=== PATIENT | male | born 2000 | race Hispanic/Latino ===

== ENCOUNTER 2022-06-19 19:22 | Emergency (ER) | payer OTHER ==
--- OUTSIDE RECORDS SUMMARY | 2022-06-19 19:25 | XMS REPORT | Continuity of Care Document ---
:2000 Author Organization [facility] t Address [address] [place] [address] [address] [place] [address] Care Team Providers Name Role Phone Unavailable Unavailable Unavailable Payers Payer Name Policy Type Policy Number Effective Date Expiration Date S ource Problems This patient has no known problems. Allergies, Adverse Reactions, Alerts Allergy Allergy Status Severity Reaction(s) Onset Inactive Treating Comm ents Source Name Type Date Date Clinician Unable DA Active U [facility] to 06-07 Assess 00:00: 00 Medications This patient has no known medications. Vital Signs Vital Name Observation Time Observation Value Comments Source Respiratory Rate 2020-06-09 09:21:42 16 /min Temperature 2020-06-09 09:21:42 36.7\S\98.1 Weight 2020-06-09 09:21:42 85051.932\S\2240 Weight Measurement Method 2020-06-09 09:21:42 Estimated by Patient 02 Sat by Pulse Oximetry 2020-06-09 09:21:42 99 /min Body Mass Index 2020-06-09 09:21:42 21.9 Height 2020-06-09 09:21:42 170.18\S\67 Pulse Rate 2020-06-09 09:21:42 76 /min 02 Sat by Pulse Oximetry 2020-06-07 22:01:05 99 /min Body Mass Index 2020-06-07 22:01:05 21.9 Height 2020-06-07 22:01:05 170.18\S\67 Pulse Rate 2020-06-07 22:01:05 76 /min Respiratory Rate 2020-06-07 22:01:05 16 /min Temperature 2020-06-07 22:01:05 36.7\S\98.1 Weight 2020-06-07 22:01:05 41140.932\S\2240 Weight Measurement Method 2020-06-07 22:01:05 Estimated by Patient 02 Sat by Pulse Oximetry 2020-06-07 21:42:10 99 /min Body Mass Index 2020-06-07 21:42:10 21.9 Height 2020-06-07 21:42:10 170.18\S\67 Pulse Rate 2020-06-07 21:42:10 76 /min Respiratory Rate 2020-06-07 21:42:10 16 /min Temperature 2020-06-07 21:42:10 36.7\S\98.1 Weight 2020-06-07 21:42:10 02547.932\S\2240 Weight Measurement Method 2020-06-07 21:42:10 Estimated by Patient 02 Sat by Pulse Oximetry 2020-06-07 17:26:05 99 /min Body Mass Index 2020-06-07 17:26:05 21.9 Height 2020-06-07 17:26:05 170.18\S\67 Pulse Rate 2020-06-07 17:26:05 76 /min Respiratory Rate 2020-06-07 17:26:05 16 /min Temperature 2020-06-07 17:26:05 36.7\S\98.1 Weight 2020-06-07 17:26:05 96585.932\S\2240 Weight Measurement Method 2020-06-07 17:26:05 Estimated by Patient 02 Sat by Pulse Oximetry 2020-06-07 17:11:09 99 /min Body Mass Index 2020-06-07 17:11:09 21.9 Height 2020-06-07 17:11:09 170.18\S\67 Pulse Rate 2020-06-07 17:11:09 76 /min Respiratory Rate 2020-06-07 17:11:09 16 /min Temperature 2020-06-07 17:11:09 36.7\S\98.1 Weight 2020-06-07 17:11:09 78785.932\S\2240 Weight Measurement Method 2020-06-07 17:11:09 Estimated by Patient 02 Sat by Pulse Oximetry 2020-06-07 16:36:47 99 /min Body Mass Index 2020-06-07 16:36:47 21.9 Height 2020-06-07 16:36:47 170.18\S\67 Pulse Rate 2020-06-07 16:36:47 76 /min Respiratory Rate 2020-06-07 16:36:47 16 /min Temperature 2020-06-07 16:36:47 36.7\S\98.1 Weight 2020-06-07 16:36:47 33432.932\S\2240 Weight Measurement Method 2020-06-07 16:36:47 Estimated by Patient 02 Sat by Pulse Oximetry 2020-06-07 15:17:21 99 /min Body Mass Index 2020-06-07 15:17:21 21.9 Height 2020-06-07 15:17:21 170.18\S\67 Pulse Rate 2020-06-07 15:17:21 76 /min Respiratory Rate 2020-06-07 15:17:21 16 /min Temperature 2020-06-07 15:17:21 36.7\S\98.1 Weight 2020-06-07 15:17:21 57093.932\S\2240 Weight Measurement Method 2020-06-07 15:17:21 Estimated by Patient 02 Sat by Pulse Oximetry 2020-06-07 14:06:00 99 /min Body Mass Index 2020-06-07 14:06:00 21.9 Height 2020-06-07 14:06:00 170.18\S\67 Pulse Rate 2020-06-07 14:06:00 76 /min Respiratory Rate 2020-06-07 14:06:00 16 /min Temperature 2020-06-07 14:06:00 36.7\S\98.1 Weight 2020-06-07 14:06:00 95826.932\S\2240 Weight Measurement Method 2020-06-07 14:06:00 Estimated by Patient 02 Sat by Pulse Oximetry 2020-06-07 14:03:57 99 /min Body Mass Index 2020-06-07 14:03:57 21.9 Height 2020-06-07 14:03:57 170.18\S\67 Pulse Rate 2020-06-07 14:03:57 76 /min Respiratory Rate 2020-06-07 14:03:57 16 /min Temperature 2020-06-07 14:03:57 36.7\S\98.1 Weight 2020-06-07 14:03:57 65842.932\S\2240 Weight Measurement Method 2020-06-07 14:03:57 Estimated by Patient 02 Sat by Pulse Oximetry 2020-06-07 13:43:56 99 /min Body Mass Index 2020-06-07 13:43:56 21.9 Height 2020-06-07 13:43:56 170.18\S\67 Pulse Rate 2020-06-07 13:43:56 76 /min Respiratory Rate 2020-06-07 13:43:56 16 /min Temperature 2020-06-07 13:43:56 36.7\S\98.1 Weight 2020-06-07 13:43:56 15532.932\S\2240 Weight Measurement Method 2020-06-07 13:43:56 Estimated by Patient 02 Sat by Pulse Oximetry 2020-06-07 13:43:25 99 /min Body Mass Index 2020-06-07 13:43:25 21.9 Height 2020-06-07 13:43:25 170.18\S\67 Pulse Rate 2020-06-07 13:43:25 76 /min Respiratory Rate 2020-06-07 13:43:25 16 /min Temperature 2020-06-07 13:43:25 36.7\S\98.1 Weight 2020-06-07 13:43:25 30643.932\S\2240 Weight Measurement Method 2020-06-07 13:43:25 Estimated by Patient WEIGHT 2020-06-07 13:38:00 63.422220 kg HEIGHT 2020-06-07 13:38:00 170.18 cm Procedures This patient has no known procedures. Encounters Start End Encounter Admission Attending Care Care Encounter Source Date/Time Date/Time Type Type Clinicians Facility Department ID 2020-06-07 Inpatient [facility] [id number] [facility] 13:18:00 23 Results This patient has no known results.
[2022-06-19] MEDS ORDERED: ETOMIDATE 20 MG/10 ML VIAL IV ONE (20:10)
--- NOTE | 2022-06-19 20:31 | RAD REPORT ---
EXAM DESCRIPTION: RAD - Shoulder Left 2 View - 06/19/2022 8:13 pm CLINICAL HISTORY: DEFORMITY COMPARISON: No comparisons FINDINGS: Subcoracoid anterior dislocation of the humeral head is noted. No fracture is apparent.
[2022-06-19] MEDS ORDERED: NA CHLORIDE 0.9% 250 ML ONE (21:15)
--- NOTE | 2022-06-19 21:19 | RAD REPORT ---
EXAM DESCRIPTION: RAD - Shoulder Left 2 View - 06/19/2022 9:14 pm CLINICAL HISTORY: Post Reduction COMPARISON: Shoulder Left 2 View dated 06/19/2022 FINDINGS: The previously noted dislocation has been reduced. No fracture seen.
[2022-06-19 22:51] VITALS: TEMP 98.4
[2022-06-19 22:57] VITALS: BP 124/56; O2SAT 99
--- NOTE | 2022-07-06 14:17 | EDPHYS ---
Physician Documentation [facility] Name: Dariusz Garcia Age: 21 yrs Sex: Male : 2000 Arrival Date: 06/19/2022 Time: 19:23 Bed 4 Private MD: ED Physician Arabella Ashraf HPI: 06/19 19:51 This 21 yrs old Male presents to ER via Unassigned with complaints of Fall sp3 Injury, Head Injury-Adult, Dislocated shoulder. 19:51 21-year-old male with no known past medical history presents with mechanical sp3 ground-level fall with injury to the left shoulder and right forehead just prior to arrival. There was no medical etiology for his fall including chest pain, syncope, seizure, or any other prodrome symptoms. Patient denies any drugs alcohol use. Last meal was approximately 3+ hours ago with only a "few bites of [place] food". Patient has not had prior sedation of any type. Patient states that he "feels like his left shoulder is dislocated". No other injuries reported and headache is not present and patient denies LOC, changes in vision, or any other neurological symptoms at this time.. Historical: - Allergies: 20:00 PENICILLINS; aa9 - Home Meds: 19:52 None [Active]; kr3 - PMHx: 19:52 None; kr3 - PSHx: 19:52 None; kr3 - Immunization history:: Client reports having NOT received the Covid vaccine. - Social history:: Smoking status: Patient denies any tobacco usage or history of. - Immunization history: Last tetanus immunization: unknown. ROS: 19:53 Constitutional: Negative for fever, chills, and weight loss, Eyes: Negative for injury, sp3 pain, redness, and discharge, ENT: Negative for injury, pain, and discharge, Neck: Negative for injury, pain, and swelling, Cardiovascular: Negative for chest pain, palpitations, and edema, Respiratory: Negative for shortness of breath, cough, wheezing, and pleuritic chest pain, Abdomen/GI: Negative for abdominal pain, nausea, vomiting, diarrhea, and constipation, Back: Negative for injury and pain, Skin: Negative for injury, rash, and discoloration, Neuro: Negative for headache, weakness, numbness, tingling, and seizure, Psych: Negative for depression, anxiety, suicide ideation, homicidal ideation, and hallucinations, Allergy/Immunology: Negative for hives, rash, and allergies. 19:53 All other systems are negative. Exam: 19:54 Constitutional: This is a well developed, well nourished patient who is awake, alert, sp3 and in no acute distress. Eyes: Pupils equal round and reactive to light, extra-ocular motions intact. Lids and lashes normal. Conjunctiva and sclera are non-icteric and not injected. Cornea within normal limits. Periorbital areas with no swelling, redness, or edema. ENT: Nares patent. No nasal discharge, no septal abnormalities noted. External auditory canals are clear. Oropharynx with no redness, swelling, or masses, exudates, or evidence of obstruction, uvula midline. Mucous membranes moist. Neck: Trachea midline, no thyromegaly or masses palpated, and no cervical lymphadenopathy. Supple, full range of motion without nuchal rigidity, or vertebral point tenderness. No Meningismus. Chest/axilla: Normal chest wall appearance and motion. Nontender with no deformity. No lesions are appreciated. Cardiovascular: Regular rate and rhythm with a normal S1 and S2. No gallops, murmurs, or rubs. Normal PMI, no JVD. No pulse deficits. Respiratory: Lungs have equal breath sounds bilaterally, clear to auscultation and percussion. No rales, rhonchi or wheezes noted. No increased work of breathing, no retractions or nasal flaring. Abdomen/GI: Soft, non-tender, with normal bowel sounds. No distension or tympany. No guarding or rebound. No evidence of tenderness throughout. Back: No spinal tenderness. No costovertebral tenderness. Full range of motion. Skin: Warm, dry with normal turgor. Normal color with no rashes, no lesions, and no evidence of cellulitis. Neuro: Awake and alert, GCS 15, oriented to person, place, time, and situation. Cranial nerves II-XII grossly intact. Motor strength 5/5 in all extremities. Sensory grossly intact. Cerebellar exam normal. Normal gait. Psych: Awake, alert, with orientation to person, place and time. Behavior, mood, and affect are within normal limits. 19:54 Head/face: Mild abrasion to the right temporal region without significant hematoma eye exam is normal including anterior chamber, pupils, extraocular movements. There is no nasal injury. TMs are clear there is no bruising in the basal skull area. Neuro exam is normal other than range of motion of the left shoulder secondary to likely dislocation.. 19:54 Musculoskeletal/extremity: Acromial drop-off left shoulder with likely clinical anterior dislocation. Distal neurovascular exam is normal including radial pulse, range of motion of hand and fingers, capillary refill. Elbow exam demonstrates no significant abnormality. X-rays are pending and will reexamine shoulder post reduction.. Vital Signs: 19:45 BP 105 / 68; Pulse 92; Resp 18 S; Pulse Ox 100% on R/A; aa9 19:50 BP 119 / 90; Pulse 95; Resp 18; Temp 98.4(TE); Pulse Ox 100% on R/A; Weight 65.77 kg kr3 (R); Height 5 ft. 10 in. (R); Pain 8/10; 21:33 BP 124 / 56; Pulse 68; Resp 16 S; Pulse Ox 99% on R/A; aa9 19:50 Body Mass Index 20.81 (65.77 kg, 177.8 cm) kr3 19:50 Pain Scale: Adult kr3 Garrett Coma Score: 19:59 Eye Response: spontaneous(4). Motor Response: obeys commands(6). Verbal Response: aa9 oriented(5). Total: 15. Trauma Score (Adult): 19:59 Eye Response: spontaneous(1); Verbal Response: oriented(1); Motor Response: obeys aa9 commands(2); Systolic BP: > 89 mm Hg(4); Respiratory Rate: 10 to 29 per min(4); Garrett Score: 15; Trauma Score: 12 MDM: 19:56 Data reviewed: vital signs, nurses notes, radiologic studies. ED course: 21-year-old sp3 male with likely left shoulder dislocation and closed head injury. Head CT is not currently indicated as patient has no neurological symptoms, no headache and only mild abrasion without significant soft tissue injury. We will x-ray left shoulder and likely relocated assuming it is only dislocated without fracture using etomidate, procedural sedation.. 19:57 Patient medically screened. sp3 21:00 ED course: Left shoulder successfully reduced using lateral rotation after 50 mg of sp3 etomidate were given in standard procedural sedation per protocol. Patient was on school lunch monitor and pulse oxygenation and had no complications secondary to sedation. Patient is now awake, alert and oriented in no acute distress conversing with family. Neurovascular exam is normal on the left upper extremity and postreduction x-ray demonstrates successful relocation with no demonstrated fracture or abnormality.. 06/19 19:49 Order name: Shoulder Left (2 View) XRAY sp3 06/19 19:50 Order name: Shoulder Left (2 View) XRAY: Please perform after reduction--we will call sp3 you 06/19 19:50 Order name: IV Saline Lock; Complete Time: 19:58 sp3 06/19 19:50 Order name: NPO; Complete Time: :58 sp3 06/19 19:50 Order name: Monitor; Complete Time: :58 sp3 06/19 19:50 Order name: Pulse Ox Monitoring; Complete Time: :58 sp3 06/19 20:26 Order name: Shoulder Immobilizer; Complete Time: 21:24 bb Administered Medications: 21:08 Drug: Etomidate IVP 10 mg {Note: 10mg IV \\T\\2042 10mg IV \\T\\2048.} Route: IVP; Site: right aa 9 forearm; 21:37 Follow up: Response: RASS: Alert and Calm (0) aa9 21:24 Drug: NS 0.9% IV 250 ml Route: IV; Rate: calculated rate; Site: right forearm; aa9 21:37 Follow up: Response: No adverse reaction; IV Status: Completed infusion; IV Intake: aa9 250ml Disposition Summary: 06/19/22 21:03 Discharge Ordered Location: Home sp3 Condition: Stable sp3 Diagnosis - Other dislocation of left shoulder joint sp3 Followup: sp3 - With: Jorge Malloy MD - When: Upon discharge from the Emergency Department - Reason: Wound Recheck Discharge Instructions: - Discharge Summary Sheet sp3 - Shoulder Dislocation sp3 - Moderate Conscious Sedation, Adult sp3 Forms: - Medication Reconciliation Form sp3 - Thank You Letter sp3 - Antibiotic Education sp3 - Prescription Opioid Use sp3 Prescriptions: - Diclofenac Sodium 75 mg Oral Tablet Sustained Release - take 1 tablet by ORAL route 2 times per day; 30 tablet; Refills: 0, Product sp3 Selection Permitted Signatures: [facility] Coni Whipple RN RN Arabella Flor MD MD sp3 Haley Soria RN RN aa9 Marsha Winkler RN RN kr3 Corrections: (The following items were deleted from the chart) 20:13 19:52 Allergies: No Known Allergies; césar aa9
--- NOTE | 2022-07-06 14:17 | ER ---
Nurse's Notes [facility] Name: Dariusz Garcia Age: 21 yrs Sex: Male : 2000 Arrival Date: 06/19/2022 Time: 19:23 Bed 4 Private MD: Diagnosis: Other dislocation of left shoulder joint Presentation: 06/19 19:50 Chief complaint: Patient states: C/o left shoulder pain, states "I was tripped over my kr3 shoes", left shoulder deformity noted, small laceration to right eye. Coronavirus screen: Vaccine status: Patient reports being unvaccinated. At this time, the client does not indicate any symptoms associated with coronavirus-19. Ebola Screen: No symptoms or risks identified at this time. Initial Sepsis Screen: Does the patient meet any 2 criteria? No. Patient's initial sepsis screen is negative. Does the patient have a suspected source of infection? No. Patient's initial sepsis screen is negative. Risk Assessment: Do you want to hurt yourself or someone else? Patient reports no desire to harm self or others. Onset of symptoms was June 19, 2022. 19:50 Method Of Arrival: Ambulatory kr3 19:50 Acuity: SANDHYA 2 kr3 20:00 Care prior to arrival: None. Mechanism of Injury: Fall from standing position. an aa9 unknown distance. 21:27 Trauma event details: Injury occurred in the [facility], Injury occurred: at aa9 home. Injury occurred: June 19, 2022 Injury occurred at: 19:20. Trauma Activation: Physician: ED Physician; Name: maria guadalupe; Notified At: ; Arrived At: Physician: General Surgeon; Name: ; Notified At: ; Arrived At: Physician: Radiology; Name: ; Notified At: ; Arrived At: Physician: Respiratory; Name: ; Notified At: ; Arrived At: Physician: Lab; Name: ; Notified At: ; Arrived At: Historical: - Allergies: 20:00 PENICILLINS; aa9 - Home Meds: 19:52 None [Active]; kr3 - PMHx: 19:52 None; kr3 - PSHx: 19:52 None; kr3 - Immunization history:: Client reports having NOT received the Covid vaccine. - Social history:: Smoking status: Patient denies any tobacco usage or history of. - Immunization history: Last tetanus immunization: unknown. Screenin:00 Abuse screen: Denies threats or abuse. Denies injuries from another. Tuberculosis aa9 screening: No symptoms or risk factors identified. 20:07 [facility] ED Fall Risk Assessment (Adult) History of falling in the last 3 months, aa9 including since admission Yes- single mechanical fall (1 pt) Confusion or Disorientation No (0 pts) Intoxicated or Sedated No (0 pts) Impaired Gait No (0 pts) Mobility Assist Device Used No (0 pt) Altered Elimination No (0 pt) Score/Fall Risk Level 0 - 2 = Low Risk Oriented to surroundings, Maintained a safe environment, Educated pt \\T\\ family on fall prevention, incl call for assistance when getting out of bed. Nutritional screening: No deficits noted. Primary Survey: 19:59 NO uncontrolled hemorrhage observed. Breathing/Chest: Spontaneous respiratory effort, aa9 equal unlabored respirations, breath sounds clear bilaterally, regular pattern, symmetrical chest rise and fall. Respiratory effort: spontaneous. Circulation: No external hemorrhage present. Regular and strong central pulse, skin warm/dry/normal color. Disability Pupils are equal, round, reactive to light and accommodation. Exposure/Environment: All clothing and personal items were removed. Forensic evidence collection is not deemed to be indicated at this time. Items placed in patient belonging bag. A warming method has been applied: A warm blanket has been provided to the patient. Reassessment Breathing: Spontaneous respiratory effort, equal unlabored respirations, breath sounds clear bilaterally, regular pattern with symmetrical chest rise and fall. Respiratory effort Spontaneous Circulation: No external hemorrhage noted. Regular and strong central pulse, skin warm/dry/normal color. Heart rhythm Sinus rhythm Disability: Pupils Pupils are equal, round, reactive to light and accomodation. Alert. Secondary Survey: 20:20 HEENT: HEENT: Head Other approximately 1 inch laceration to the right side of face aa9 above eyebrow. Gastrointestinal: No deficits noted. : No deficits noted. Musculoskeletal: No deficits noted. Assessment: 19:58 General: Appears uncomfortable, slender, Behavior is cooperative, anxious. Pain: aa9 Complains of pain in anterior aspect of left shoulder and posterior aspect of left shoulder Pain currently is 9 out of 10 on a pain scale. Noted to be quiet/stoic, resistant to movement. Respiratory: Airway is patent Respiratory effort is even, unlabored. Derm: Skin is intact, is healthy with good turgor, Wound noted outer aspect of right eyebrow Wound is approximately 1 inch laceration. 20:48 Reassessment: assisted Maria Guadalupe AGUSTIN with reduction of left shoulder, pt tolerated well. aa9 20:48 Respiratory: Airway is patent Respiratory effort is even, unlabored. aa9 21:34 Reassessment: Patient appears in no apparent distress at this time. Patient is alert, aa9 oriented x 3, equal unlabored respirations, skin warm/dry/pink. Patient is alert/active/playful, equal unlabored respirations, skin warm/dry/pink. Patient states feeling better. Patient states symptoms have improved. Vital Signs: 19:45 BP 105 / 68; Pulse 92; Resp 18 S; Pulse Ox 100% on R/A; aa9 19:50 BP 119 / 90; Pulse 95; Resp 18; Temp 98.4(TE); Pulse Ox 100% on R/A; Weight 65.77 kg kr3 (R); Height 5 ft. 10 in. (R); Pain 8/10; 21:33 BP 124 / 56; Pulse 68; Resp 16 S; Pulse Ox 99% on R/A; aa9 19:50 Body Mass Index 20.81 (65.77 kg, 177.8 cm) kr3 19:50 Pain Scale: Adult kr3 Garrett Coma Score: 19:59 Eye Response: spontaneous(4). Motor Response: obeys commands(6). Verbal Response: aa9 oriented(5). Total: 15. Trauma Score (Adult): 19:59 Eye Response: spontaneous(1); Verbal Response: oriented(1); Motor Response: obeys aa9 commands(2); Systolic BP: > 89 mm Hg(4); Respiratory Rate: 10 to 29 per min(4); [place] Score: 15; Trauma Score: 12 ED Course: 19:23 Patient arrived in ED. mr 19:39 Arabella Ashraf MD is Attending Physician. sp3 19:52 Triage completed. kr3 19:52 Arm band placed on Patient placed in an exam room, on a stretcher, on pulse oximetry. kr3 19:58 Inserted saline lock: 20 gauge in right forearm, using aseptic technique. aa9 20:00 Patient has correct armband on for positive identification. Bed in low position. Call aa9 light in reach. Side rails up X2. Adult w/ patient. Pulse ox on. NIBP on. 20:06 Patient maintains SpO2 saturation greater than 95% on room air. aa9 20:07 Thermoregulation: warm blanket given to patient. aa9 20:16 Shoulder Left (2 View) XRAY In Process Unspecified. EDMS 20:48 Assist provider with reduction of left shoulder using manipulation, Set up for aa9 procedure. Performed by Arabella Ashraf MD Immobilized with shoulder immobilizer Patient tolerated well. 21:03 Jorge Malloy MD is Referral Physician. sp3 21:15 Shoulder Left (2 View) XRAY: Please perform after reduction--we will call you In EDMS Process Unspecified. 21:33 Haley Soria, RN is Primary Nurse. aa9 21:34 IV discontinued, intact, bleeding controlled, No redness/swelling at site. Pressure aa9 dressing applied. Administered Medications: 21:08 Drug: Etomidate IVP 10 mg {Note: 10mg IV \\T\\2 10mg IV \\T\\8.} Route: IVP; Site: right aa 9 forearm; 21:37 Follow up: Response: RASS: Alert and Calm (0) aa9 21:24 Drug: NS 0.9% IV 250 ml Route: IV; Rate: calculated rate; Site: right forearm; aa9 21:37 Follow up: Response: No adverse reaction; IV Status: Completed infusion; IV Intake: aa9 250ml Medication: 21:27 VIS not applicable for this client. aa9 Intake: 21:28 PO: 0ml; Total: 0ml. aa9 21:37 IV: 250ml; Total: 250ml. aa9 Output: 21:28 Urine: 0ml; Total: 0ml. aa9 Outcome: 21:03 Discharge ordered by . sp3 21:33 Discharged to home via ambulance, with family. aa9 21:33 Condition: stable 21:33 Discharge instructions given to patient, Instructed on discharge instructions, follow up and referral plans. medication usage, Demonstrated understanding of instructions, follow-up care, medications, Prescriptions given X 1. 21:38 Patient's length of stay was not longer than 2 hours. aa9 21:38 Patient left the ED. aa9 Signatures: [facility] GriffinSavana Setul, MD MD sp3 Haley Soria RN RN aa9 Marsha Winkler RN RN kr3 Corrections: (The following items were deleted from the chart) 20: 19:52 Allergies: No Known Allergies; césar aa9 20:23 19:58 Derm: Skin is intact, is healthy with good turgor, aa9 aa9
== END 2022-06-19 21:38 | disposition home or self-care (01) ==
LOC: ER 19:22
PROC: 0RSKXZZ Reposition Left Shoulder Joint, External Approach (ICD-10-PCS; principal; 2022-06-19)
DX: S43.085A Other dislocation of left shoulder joint, initial encounter (principal); Z88.0 Allergy status to penicillin
CPT/HCPCS: 73030 ×2; 96375; 96374; 99285; 23650; J7050